=== PATIENT | male | born 1985 | race Hispanic/Latino ===

== ENCOUNTER 2023-05-23 16:23 | Emergency (ER) | payer SELFPAY ==
[2023-05-23] MEDS ORDERED: Ibuprofen 200 MG TAB ONE (18:29)
[2023-05-23 18:49] LABS: #Monocytes 0.8 10x3/uL (0.0-1.1); #Neutrophils 3.1 10x3/uL (1.5-8.4); %Basophils 0.4 % (0.0-2.0); %Eosinophils 0.8 % (0.0-6.0); %Lymphocytes 25.5 % (18.0-47.0); %Monocytes 15.4 % (0.0-10.0); %Neutrophils 57.7 % (40.0-75.0); Hematocrit 43.2 % (38.8-50.0); Hemoglobin 14.8 g/dL (13.5-17.5); Mean Corpuscular HGB CONC 34.3 g/dL (32.0-36.0); Mean Corpuscular Volume 84.5 fl (81.2-95.1); Mean Platelet Volume 11.4 fl (7.4-10.4); Platelet Count 150 10x3/uL (150-450); RBC Distribution Width 12.2 % (11.5-14.5); Red Blood Cell (RBC) Count 5.11 10x6/uL (4.32-5.72); White Blood Cell (WBC) Count 5.3 10x3/uL (3.5-10.5)
[2023-05-23 19:02] LABS: ALT (SGPT) 50 U/L (8-55); AST (SGOT) 37 U/L (5-34); Alkaline Phosphatase 69 U/L (40-110); Anion Gap 14 mmol/L (10-20); BUN (Urea Nitrogen) 10 mg/dL (8.9-20.6); Bilirubin, Total 0.4 mg/dL (0.2-1.2); Calc. Creatinine Clearance 0 mL/min (70-130); Calcium 8.3 mg/dL (7.8-10.44); Carbon Dioxide 21 mmol/L (22-29); Chloride 102 mmol/L (98-107); Estimated GFR 113; Globulin 3.1 g/dL (2.4-3.5); Glucose 112 mg/dL (70-105); Lipase 25 U/L (8-78); Potassium 3.4 mmol/L (3.5-5.1); Protein, Total 7.1 g/dL (6.0-8.3); Sodium 134 mmol/L (136-145)
[2023-05-23 19:34] LABS: SARS-CoV-2 NAA Rapid Test Not Detected (NotDetected)
== END 2023-05-23 19:50 | disposition home or self-care (01) ==
LOC: CSHERS 16:23
DX: R19.7 Diarrhea, unspecified (principal); R11.2 Nausea with vomiting, unspecified
CPT/HCPCS: 80053; 83690; 85025; 96360

== ENCOUNTER 2023-12-17 18:06 | Emergency (ER) | payer SELFPAY ==
[2023-12-17 19:01] LABS: Influenza A by NAA Not Detected (NotDetected); Influenza B by NAA Not Detected (NotDetected); SARS-CoV-2 NAA Rapid Test Not Detected (NotDetected)
== END 2023-12-17 19:32 | disposition home or self-care (01) ==
LOC: CSHERS 18:06
DX: B34.9 Viral infection, unspecified (principal)
CPT/HCPCS: 99283

== ENCOUNTER 2025-02-02 19:45 | Emergency (ER) | payer SELFPAY ==
[2025-02-02] MEDS ORDERED: Dexamethasone 10 MG/ML VIAL ONE (21:04)
[2025-02-02] MEDS ORDERED: Ketorolac Tromethamine 30 MG (1 mL) VIAL ONE (21:04)
[2025-02-02] MEDS ORDERED: Acetaminophen 500 MG TAB ONE ×2 (21:04→21:09)
[2025-02-02 21:43] LABS: #Basophils 0.04 10x3/uL (0.0-0.2); #Eosinophils 0.07 10x3/uL (0.0-0.5); #Monocytes 1.33 10x3/uL (0.0-1.1); #Neutrophils 12.32 10x3/uL (1.5-8.4); %Basophils 0.3 % (0.0-2.0); %Eosinophils 0.4 % (0.0-6.0); %Lymphocytes 12.1 % (18.0-47.0); %Monocytes 8.5 % (0.0-10.0); %Neutrophils 78.4 % (40.0-75.0); Hematocrit 43.5 % (38.8-50.0); Hemoglobin 14.8 g/dL (13.5-17.5); Mean Corpuscular Hemoglobin 29.4 pg (27.0-33.0); Mean Corpuscular Volume 86.3 fL (81.2-95.1); Platelet Count 176 10x3/uL (150-450); Red Blood Cell (RBC) Count 5.04 10x6/uL (4.32-5.72); White Blood Cell (WBC) Count 15.70 10x3/uL (3.5-10.5)
[2025-02-02 21:55] LABS: ALT (SGPT) 29 U/L (Less than 45); AST (SGOT) 19 U/L (11-34); Albumin 4.7 g/dL (3.1-4.5); Alkaline Phosphatase 83 U/L (40-110); Anion Gap 12 mmol/L (10-20); BUN (Urea Nitrogen) 16 mg/dL (8.9-20.6); Bilirubin, Total 0.7 mg/dL (0.3-1.2); Calc. Creatinine Clearance 0 mL/min (70-130); Calcium 9.0 mg/dL (7.8-10.44); Carbon Dioxide 27 mmol/L (22-29); Chloride 102 mmol/L (98-107); Globulin 3.5 g/dL (2.4-3.5); Glucose 107 mg/dL (70-105); Potassium 4.0 mmol/L (3.5-5.1); Sodium 137 mmol/L (136-145)
[2025-02-02 22:01] LABS: Troponin I Less than 0.010 ng/mL (< 0.028)
== END 2025-02-02 22:33 | disposition home or self-care (01) ==
LOC: CSHERS 19:45
DX: J02.9 Acute pharyngitis, unspecified (principal)
CPT/HCPCS: 36415; 71045; 80053; 84484; 85025; 87081; 87428; 87430; 93005; 96372; J1100; J1885

== ENCOUNTER 2025-02-13 17:01 | Emergency (ER) | payer OTHER ==
[2025-02-13] MEDS ORDERED: Ketorolac Tromethamine 30 MG (1 mL) VIAL ONE (18:18)
[2025-02-13] MEDS ORDERED: Acetaminophen 500 MG TAB ONE (18:18)
[2025-02-13] MEDS ORDERED: Dexamethasone 10 MG/ML VIAL ONE (18:18)
[2025-02-13] MEDS ORDERED: Benzonatate 100 MG CAP ONE (18:19)
== END 2025-02-13 18:42 | disposition home or self-care (01) ==
LOC: CSHERS 17:01
DX: J06.9 Acute upper respiratory infection, unspecified (principal)
CPT/HCPCS: 87081; 87428; 87430; 96372; 99283; J1100; J1885